=== PATIENT | male | born 1965 | race Caucasian/White ===

== ENCOUNTER 2017-04-06 11:45 | Emergency (ER) | payer BC ==
[2017-04-06 12:13] VITALS: BP 105/69
--- NOTE | 2017-04-06 12:48 | UC ---
Lower Extremity/Ankle HPI - HPI Summary HPI Summary: Red, sore, swollen area behind L knee starting about a week ago. Denies fever or chills, no known tick bite. Looks like when he had similar red spot behind R knee 4 years ago and was dx with Lyme, reports abx tx x 3 because of recurrent symptoms. - History of Current Complaint Chief Complaint: UCSkin Stated Complaint: RASH Time Seen by Provider: 04/06/17 12:24 Hx Obtained From: Patient Onset/Duration: Gradual Onset, Lasting Days Severity Initially: Mild Severity Currently: Mild Alleviating Factor(s): Rest Able to Bear Weight: Yes - Allergies/Home Medications Allergies/Adverse Reactions: Allergies Allergy/AdvReac Type Severity Reaction Status Date / Time Penicillins [PCN] Allergy Intermediate Hives Verified 04/06/17 12:02 Home Medications: Home Medications Cetirizine* [ZyrTEC 10 MG TAB*] 1 tab PO DAILY PRN 04/06/17 [History Confirmed 04/06/17] Mens Formula [employer] Probiotic 1 tab PO DAILY 04/06/17 [History Confirmed 04/06/17] PMH/Surg Hx/FS Hx/Imm Hx - Surgical History Surgical History: None - Family History Known Family History: Negative: Blood Disorder - Social History Lives: With Family Alcohol Use: None Substance Use Type: Marijuana Smoking Status (MU): Former Smoker Type: Cigarettes 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 Review of Systems Constitutional: Negative Skin: Rash Eyes: Negative ENT: Negative Respiratory: Negative Cardiovascular: Negative Gastrointestinal: Negative Genitourinary: Negative Motor: Negative Neurovascular: Negative Musculoskeletal: Negative Neurological: Negative Psychological: Negative All Other Systems Reviewed And Are Negative: Yes Physical Exam Triage Information Reviewed: Yes Appearance: Well-Appearing, No Pain Distress, Obese Vital Signs: Initial Vital Signs Temp 98.9 F 04/06/17 12:06 Pulse 73 04/06/17 12:06 Resp 16 04/06/17 12:06 BP 105/69 04/06/17 12:06 Pulse Ox 96 04/06/17 12:06 Vital Signs Reviewed: Yes Eye Exam: Normal Eyes: Positive: Conjunctiva Clear ENT Exam: Normal ENT: Positive: Normal ENT inspection, Hearing grossly normal, Pharynx normal, TMs normal Dental Exam: Normal Neck exam: Normal Neck: Positive: Supple Respiratory Exam: Normal Respiratory: Positive: Chest non-tender, Lungs clear, Normal breath sounds, No respiratory distress Cardiovascular Exam: Normal Cardiovascular: Positive: RRR, No Murmur Musculoskeletal Exam: Normal Musculoskeletal: Positive: Strength Intact Neurological Exam: Normal Neurological: Positive: Alert Psychological Exam: Normal Skin Exam: Other - indurated red oval area L medial popliteal area with blurred margins. Approx 10cm x 5cm, mildly tender Lower Extremity Course/Dx - Differential Dx/Diagnosis Provider Diagnoses: Cellulitis L popliteal area Discharge - Discharge Plan Condition: Stable Disposition: HOME Prescriptions: DOXYcycline CAP(*) [DOXYcycline 100MG CAP(*)] 100 mg PO BID #20 cap Patient Education Materials: Cellulitis (ED) Referrals: Lionel Huerta DO [Primary Care Provider] - 7 Days Additional Instructions: As we discussed, your spot looks clinically more like cellulitis than like Lyme. Take the doxycycline as prescribed, and please see your primary care provider before the prescription ends if you have prolonged body-wide symptoms.
== END 2017-04-06 12:40 | disposition home or self-care (01) ==
LOC: UCEAST 11:45
DX: Z87.891 Personal history of nicotine dependence (principal); L03.116 Cellulitis of left lower limb
CPT/HCPCS: 99212; G0463